=== PATIENT | male | born 1940 | race Caucasian/White ===

== ENCOUNTER → 2016-08-01 | Outpatient (CLI) | payer MEDICARE, BC, MEDICAID ==
[~2016-08-01] MED LIST: ACET-44 PO; ACET325T51 PO; ASPI81TA2 PO; CARB1TAB14 PO; CHOL200024 PO; DOCU100C19 PO; DULO30CA2 PO; FISH1CAP PO; GABA-336 PO; IPRA3AMP AEROSOL; LIDO700A3 TOP; MELO-267 PO; MELO-273 PO; MENT71OI TOP; MULT-1234 PO; OMEP20CA10 PO; POLY17PO6 PO; PRED2.5T PO; SIMV20TA6 PO; [UNRECOGNIZED DRUG - CODE] PO
== END ==
LOC: NWCC 08:29
PROVIDERS: ATTEND Internal Medicine
DX: B37.89 Other sites of candidiasis (principal); L98.412 Non-pressure chronic ulcer of buttock with fat layer exposed
CPT/HCPCS: 11042; A6209; G0463

== ENCOUNTER → 2016-08-15 | Outpatient (CLI) | payer MEDICARE, BC, MEDICAID ==
[~2016-08-15] MED LIST changes: -DOCU100C19 PO; -MELO-273 PO; -MENT71OI TOP; -[UNRECOGNIZED DRUG - CODE] PO
== END ==
LOC: NWCC 08:58
PROVIDERS: ATTEND Internal Medicine
DX: B37.89 Other sites of candidiasis (principal); L98.412 Non-pressure chronic ulcer of buttock with fat layer exposed; L53.9 Erythematous condition, unspecified
CPT/HCPCS: 11042; 11045; A6209; G0463

== ENCOUNTER → 2016-08-21 | Outpatient (CLI) | payer MEDICARE, BC, MEDICAID ==
[~2016-08-21] VITALS: Ht 172.7 cm; Wt 104.5 kg
[~2016-08-21] MED LIST changes: +REGADENOSON 0.4mg/5ml INJECTION IV ONE; +SALINE FLUSH 10ml SYRINGE ONE
--- NOTE | 2016-08-23 10:34 | ESTF ---
PHARMACOLOGICAL STRESS NUCLEAR SCAN DATE 08/21/2016 INDICATION 125.1 LBBB PROCEDURE The patient was unable to exercise on the treadmill due to Parkinson's disease and unsteady gait. He was injected with technetium-99m Myoview dose of 12.5 mCi. Lexiscan dose of 0.4 mg was administered followed by technetium-99m Myoview dose of 29.2 mCi. Stress and rest perfusion images were obtained per protocol. No side effects were reported. Rest EKG showed sinus rhythm, LBBB. During pharmacological stress, there was no arrhythmia. EKG portion is nondiagnostic. Blood pressure was 137/61. Heart rate of 68 beats per minute. Heart rate bharathi to 81 beats per minute, 55%. Blood pressure 140/65. Stress and rest perfusion images were obtained and reviewed. A fixed perfusion defect is seen in the septal wall, most likely due to LBBB. In addition, appears to be reduced uptake of mild to moderate degree especially the inferolateral wall which appears to redistribute suggestive of mild reversible ischemia, partially reversible in that distribution. Anterior wall exhibits normal uptake on both sets of images. Inferior wall exhibits moderately reduced uptake on both sets of images without redistribution. This is suggestive of diaphragmatic attenuation artifact. Gated images showed normal wall motion, normal contractility throughout, normal LV function. Ejection fraction measured 61% on stress images, 60% on rest images. No abnormal extracardiac uptake was identified. IMPRESSION: Pharmacological stress nuclear scan clinically negative, electrically nondiagnostic due to LBBB, scintigraphically suggestive of mild reversible ischemia in the lateral/inferolateral wall, partially reversible. Fixed perfusion defect identified in the anteroseptal wall is most likely due to LBBB as an artifact. In addition, diaphragmatic attenuation artifact is present. LV function is normal as above. Will discuss results with the patient regarding further management. SUNDEEP
== END ==
LOC: IMA 08:04
PROVIDERS: ATTEND Internal Medicine Cardiovascular Disease
DX: I25.10 Atherosclerotic heart disease of native coronary artery without angina pectoris (principal); R94.39 Abnormal result of other cardiovascular function study; I44.7 Left bundle-branch block, unspecified
CPT/HCPCS: 78452; 93017; A9502; J2785

== ENCOUNTER → 2016-08-29 | Outpatient (CLI) | payer MEDICARE, BC, MEDICAID ==
[~2016-08-29] MED LIST changes: +CALMOSEPTINE OINTMENT 3.5 G PACKET TOP ONE; -REGADENOSON 0.4mg/5ml INJECTION IV ONE; -SALINE FLUSH 10ml SYRINGE ONE
== END ==
LOC: NWCC 09:26
PROVIDERS: ATTEND Internal Medicine
DX: B37.89 Other sites of candidiasis (principal); L98.412 Non-pressure chronic ulcer of buttock with fat layer exposed; R32 Unspecified urinary incontinence; L53.9 Erythematous condition, unspecified
CPT/HCPCS: 11042; A6209; A9270; G0463

== ENCOUNTER → 2016-09-05 | Outpatient (CLI) | payer MEDICARE, BC, MEDICAID ==
[~2016-09-05] MED LIST changes: +ATEN25TA PO; -CALMOSEPTINE OINTMENT 3.5 G PACKET TOP ONE; +MAGN400O4
== END ==
LOC: NWCC 09:08
PROVIDERS: ATTEND Internal Medicine
DX: B37.89 Other sites of candidiasis (principal); L98.412 Non-pressure chronic ulcer of buttock with fat layer exposed; L53.9 Erythematous condition, unspecified
CPT/HCPCS: 11042; A6209; A6210; G0463

== ENCOUNTER → 2016-09-17 | Outpatient (CLI) | payer MEDICARE, BC, MEDICAID ==
[~2016-09-17] MED LIST changes: +CALMOSEPTINE OINTMENT 3.5 G PACKET TOP ONE
== END ==
LOC: NWCC 09:29
PROVIDERS: ATTEND Internal Medicine
DX: B37.89 Other sites of candidiasis (principal); L98.412 Non-pressure chronic ulcer of buttock with fat layer exposed
CPT/HCPCS: 11042; A6209; A6212; A9270; G0463

== ENCOUNTER 2016-09-19 06:47 | Outpatient (CLI) | payer MEDICARE, BC, MEDICAID ==
[~2016-09-19] VITALS: Ht 175.3 cm; Wt 99.4 kg
[2016-09-19] VITALS (19 sets, daily range): BP systolic 109–155; BP diastolic 56–82; PULSE 60–90; RESP 0–26; TEMP 97.6–98.5; O2SAT 93–97; Ht 175.3 cm; Wt 99.4 kg
[~2016-09-19 06:47] MED LIST changes: -ATEN25TA PO; -CALMOSEPTINE OINTMENT 3.5 G PACKET TOP ONE; -MAGN400O4
--- NOTE | 2016-09-19 07:02 | NUR ---
Admit Pt admitted to room 124 at this time via . Pt transferred to bed from x1 assist.
[2016-09-19 07:51] LABS: HCT - HEMATOCRIT 48.6 % (41-53); MEAN CORPUSCULAR HGB CONC(MCHC 30.9 GM/DL (31-37); MEAN PLATELET VOLUME 9.2 UM3 (9.4-12.4); WBC - WHITE BLOOD COUNT 10.9 T/MM3 (4.5-11.0)
[2016-09-19 07:58] LABS: ALBUMIN/GLOBULIN RATIO 1.1 RATIO (1.1-2.2); ALKALINE PHOSPHATASE 104 U/L (38-126); ALT (SGPT) 25 U/L (21-72); ANION GAP 13 MEQ/L (5-15); AST (SGOT) 27 U/L (17-59); BUN/CREATININE RATIO 20 RATIO (6-26); CALCIUM 9.4 MG/DL (8.4-10.2); CHLORIDE 105 MEQ/L (98-107); CO2 - CARBON DIOXIDE 28 MEQ/L (22-30); CREATININE 0.9 MG/DL (0.8-1.5); GLOMERULAR FILTRATION RATE 82; GLUCOSE 98 MG/DL (75-110); POTASSIUM 4.1 MEQ/L (3.6-5); SODIUM 146 MEQ/L (134-144); TOTAL PROTEIN 7.8 G/DL (6.3-8.2)
[2016-09-19 08:19] LABS: BASOPHILS # (MANUAL) 0.1 T/MM3 (0-0.2); EOSINOPHILS # (MANUAL) 0.9 T/MM3 (0-0.5); LYMPHOCYTES # (MANUAL) 2.8 T/MM3 (1-4.8); MONOCYTES # (MANUAL) 0.8 T/MM3 (0-0.8); NEUTROPHILS #(MANUAL)-ABSOLUTE 6.3 T/MM3 (1.8-7.7); TOTAL CELLS COUNTED 100 %
--- NOTE | 2016-09-19 08:23 | NUR ---
Elevated Plt Ct Dr. Tilley paged at 0813 to notify of critical value: Plt Ct 788. No response at this time.
[2016-09-19] MEDS: NORMAL SALINE 1,000 ML IV SCH ×2 (08:30→11:31)
[2016-09-19] MEDS ORDERED: FENTANYL 100mcg/2ml INJECTION ONE (08:45)
[2016-09-19] MEDS ORDERED: MIDAZOLAM 2mg/2ml INJECTION ONE (08:46)
[2016-09-19] MEDS ORDERED: NITROGLYCERIN 50mg/10ml INJECTION IV ONE (08:46)
[2016-09-19] MEDS ORDERED: VERAPAMIL 5mg/2ml INJECTION IV ONE (08:46)
[2016-09-19] MEDS ORDERED: LIDOCAINE 1% (10mg/ml) 30ml SDV ONE (08:47)
[2016-09-19] MEDS ORDERED: HEPARIN 1,000units in NS 500ml BAG IV ONE (08:47)
--- NOTE | 2016-09-19 09:10 | NUR ---
Off Unit Pt off unit to CV Lab at this time via cart
[2016-09-19] MEDS ORDERED: IOHEXOL 350mg/ml 200ml BOTTLE ONE ×2 (09:31→10:25)
[2016-09-19] MEDS ORDERED: MAGN400O4 (11:01)
--- NOTE | 2016-09-19 11:15 | NUR ---
Return Pt returned to floor at this time. transferred from cart to bed via slide board x3 assist.
[2016-09-19] MEDS ORDERED: HYDROCODONE/APAP 5 mg/325 mg TABLET PO PRN (12:00)
[2016-09-19] MEDS ORDERED: PROMETHAZINE 25 MG INJECTION IV PRN (12:00)
[2016-09-19] MEDS ORDERED: MAG-AL + SIM LIQUID 30 ML UDC PO PRN (12:00)
[2016-09-19] MEDS ORDERED: ACETAMINOPHEN 325 MG TABLET PO PRN (12:00)
[2016-09-19] MEDS ORDERED: METOCLOPRAMIDE 10mg/2ml INJECTION IV PRN (12:00)
[2016-09-19] MEDS ORDERED: ATROPINE 1 MG/ML VIAL IV PRN (12:00)
[2016-09-19] MEDS ORDERED: MORPHINE SULFATE 4 MG SYRINGE IV PRN ×2 (12:00)
[2016-09-19] MEDS ORDERED: NITROGLYCERIN 0.4 MG SUBLINGUAL TABLET SL PRN (12:00)
[2016-09-19] MEDS ORDERED: BISACODYL 10 MG SUPPOSITORY RECTALLY PRN (12:00)
[2016-09-19] MEDS ORDERED: LORAZEPAM 0.5 MG TABLET PO PRN (12:00)
[2016-09-19] MEDS ORDERED: BISACODYL 5 MG E.C. TABLET PO PRN (12:00)
[2016-09-19] MEDS ORDERED: MILK OF MAGNESIA 30 ML SUSP PO PRN (12:00)
[2016-09-19] MEDS ORDERED: LORAZEPAM 2 MG/ML INJECTION IV PRN (12:00)
[2016-09-19] MEDS ORDERED: ONDANSETRON 4mg/2ml INJECTION IV PRN (12:00)
--- NOTE | 2016-09-19 13:13 | NUR ---
EUN CM IN TO VISIT WITH PT. HE CONFIRMS THAT HE RESIDES AT [facility]. HE PLANS TO RETURN THERE UPON DC. VM IS LEFT FOR PELON TO LET HER KNOW THAT PT WILL BE STAYING THE NIGHT BUT WILL NEED TRANSPORT ON SATURDAY. Addendum: 09/19/16 at 1314 by EMANUEL NORMAN RN Amended: Links added.
[2016-09-19] MEDS: ATENOLOL 25 MG TABLET PO SCH (15:14)
--- NOTE | 2016-09-19 17:00 | NUR ---
TR Band Removal TR band to right wrist removed at this time. No bleeding/hematoma noted to site. 2x2/Tegaderm pressure dressing applied to puncture site. No drainage noted. Splint place back on arm. Pt instructed to extremity guidelines and verbalized understanding.
--- NOTE | 2016-09-19 22:02 | CVPROF ---
DATE OF PROCEDURE 09/19/2016 PROCEDURE PERFORMED 1. Transradial and transfemoral left heart catheterization. 2. LV gram. 3. Coronary angiogram. INDICATIONS Elderly gentleman with advanced Parkinson's disease. He has been wheelchair-bound for some time. They are deciding on having total hip replacement. He had an abnormal EKG. He underwent stress nuclear scan that was abnormal. He has significant risk factors for coronary artery disease. He was counseled on the indication, alternatives, risks and benefits of heart catheterization and they agreed to proceed. PREMEDICATION IV Versed and IV fentanyl. Please refer to nursing notes. NARRATIVE OF PROCEDURE The patient was brought to the cardiac cath laboratory and received IV sedation. I went ahead and injected lidocaine 1% in the right wrist, accessed the right radial artery without difficulty using modified Seldinger percutaneous technique. A 6-Albanian arterial sheath was introduced and placed. The side arm was flushed. I used multiple catheters. It was hard to reach the coronary arteries and a little hard to cross the aortic valve as well due to extreme tortuosity in the subclavian artery. I was able to cross the aortic valve with a catheter and performed hand injection, measured pressures. Then we decided to pay attention to the groin so it was prepped and draped in the usual sterile fashion. I went ahead and injected lidocaine 1%, about 10 mL, accessed the right common femoral artery without difficulty using modified Seldinger percutaneous technique. A 6-Fr arterial sheath was introduced, placed and side arm flushed. The patient did receive intraarterial drug combo at the beginning of the procedure shortly after obtaining radial artery access. At this point I used JR4 catheter, JL4 catheter and then went back with the Tom catheter due to catheter-induced spasm in the right coronary artery. Adequate diagnostic coronary angiograms were performed. The procedure was well tolerated. There were no immediate complications. Femoral arteriogram was followed by successful deployment of Mynx for closure. TR band was deployed for hemostasis over the radial artery. The patient remained free from angina, hemodynamically and electrically stable. He did receive vigorous IV fluid administration to help flush the dye out of his system, this being a difficult case requiring more contrast administration. FINDINGS CORONARY ANGIOGRAM: Left main coronary artery is large and normal. Left circumflex artery is a large codominant vessel. The obtuse marginal branch is large and exhibits a long area of severe occlusion, 80%-90%, throughout the proximal segment and extends to the ostium. The PLV branch and LPDA are free from occlusive disease. The diseased obtuse marginal branch is large in caliber. The LAD is a large vessel and exhibits severe occlusion, at least 90%, followed by aneurysmal dilatation. This is in the proximal LAD. The diagonal branch exhibits 70%-80% stenosis. I measured about 1.5 mm in caliber. Right coronary angiogram exhibits catheter-induced spasm. Additional images going back with the Tom catheter show a proximal moderate stenosis of about 60%-70%. Distal RCA is moderate 60%-70%. RPDA is free from occlusive disease. RPLB branch is quite small and exhibits severe diffuse stenosis throughout, subtotal occlusion. I don't see a segment of this vessel that would serve as a healthy segment to tie up a bypass graft. Limited LV gram shows normal left ventricular systolic function. Femoral arteriogram shows normal anatomy. IMPRESSION 1. Severe three-vessel coronary artery disease as manifested by a 90% proximal LAD occlusion followed by poststenotic small aneurysm, 80% first diagonal branch stenosis, 80%-90% occlusion of large obtuse marginal branch of the left circumflex artery, 60%-70% stenosis in two areas of the RCA, also a very severe diffuse stenosis throughout the RPLB branch. 2. Preserved LV systolic function. 3. Codominant RCA and LCX. 4. Normal hemodynamics. No subvalvular or transvalvular pressure gradient. In summary, the patient has severe three-vessel coronary artery disease with normal LV function. Anatomy is suitable for CABG. Unfortunately, patient's overall medical condition is poor with advanced Parkinson's disease and poor mobility and he would not be a good surgical candidate for CABG. I discussed that with the patient and family and I offered them a surgical consultation - they declined at this time. We will look into interventional options versus medical therapy. I am going to have the patient see Dr. Tr Martinez for an opinion on complex PCI versus medical therapy. Obviously, at this point the patient cannot be cleared for hip surgery. [facility]
[2016-09-20] MEDS: NORMAL SALINE 1,000 ML IV SCH (03:02)
[2016-09-20 05:07] LABS: HCT - HEMATOCRIT 44.2 % (41-53); HGB - HEMOGLOBIN 13.9 GM/DL (13.5-17.5); MEAN CORPUSCULAR HGB 25.4 UUG (26-34); MEAN CORPUSCULAR HGB CONC(MCHC 31.4 GM/DL (31-37); MEAN CORPUSCULAR VOLUME 80.8 UM3 (80-100); MEAN PLATELET VOLUME 9.5 UM3 (9.4-12.4); RED BLOOD COUNT 5.47 M/MM3 (4.50-5.90); WBC - WHITE BLOOD COUNT 12.6 T/MM3 (4.5-11.0)
[2016-09-20 05:30] LABS: ANION GAP 10 MEQ/L (5-15); BUN/CREATININE RATIO 19 RATIO (6-26); CALCIUM 9.4 MG/DL (8.4-10.2); CHLORIDE 108 MEQ/L (98-107); CO2 - CARBON DIOXIDE 26 MEQ/L (22-30); CREATININE 0.8 MG/DL (0.8-1.5); GLOMERULAR FILTRATION RATE 94; GLUCOSE 102 MG/DL (75-110); SODIUM 144 MEQ/L (134-144)
[2016-09-20 05:51] LABS: BAND NEUTROPHILS # 0.4 T/MM3; EOSINOPHILS # (MANUAL) 0.3 T/MM3 (0-0.5); LYMPHOCYTES # (MANUAL) 3.7 T/MM3 (1-4.8); NEUTROPHILS #(MANUAL)-ABSOLUTE 7.3 T/MM3 (1.8-7.7); TOTAL CELLS COUNTED 100 %
[2016-09-20 07:59] VITALS: BP 146/70; PULSE 53; RESP 13; TEMP 98.1; O2SAT 96
[2016-09-20 08:00] VITALS: PULSE 53
[2016-09-20] MEDS: ATENOLOL 25 MG TABLET PO SCH (09:00)
[2016-09-20] MEDS ORDERED: LEVODOPA PO SCH (09:15)
[2016-09-20] MEDS ORDERED: ENTACAPONE PO SCH (09:15)
[2016-09-20] MEDS ORDERED: CARBIDOPA PO SCH (09:15)
[2016-09-20] MEDS: ENTACAPONE 200 MG TABLET PO SCH ×2 (11:45→15:28)
[2016-09-20] MEDS: CARBIDOPA/LEVODOPA 25 MG/100 MG TABLET PO SCH ×2 (11:45→15:29)
[2016-09-20 12:34] VITALS: BP 121/57; PULSE 51; RESP 18; TEMP 98.5; O2SAT 95
--- NOTE | 2016-09-20 12:55 | NUR ---
CM CM TO VISIT PATIENT, HE WILL DISCHARGE BACK TO [facility]. NO DISCHARGE NEEDS. CM CONTACT INFORMATION PROVIDED.
--- NOTE | 2016-09-20 13:11 | NUR ---
CM LEFT MESSAGE FOR BOTH NATASHA AND CHRIS AT [facility] TO UPDATE ON DISCHARGE.
--- NOTE | 2016-09-20 13:41 | NUR ---
EUN SPOKE WITH ENA FROM [facility] [phone], TRANSPORTATION SAID THAT IF THEY CAN [facility] BY 5:30 PM THAT WOULD BE BEST. WHEN DISCHARGE TIME CALL ENA UNTIL 4:00, AFTER CALL RAVEN (MEDICAL NUMERICAL CONTROL OPERATOR) WHO IS AWARE OF PENDING DISCHARGE.
[2016-09-20] MEDS ORDERED: ATEN25TA PO (14:54)
--- NOTE | 2016-09-20 15:32 | NUR ---
DISMISSAL PREP CALLED [facility] TO GIVE REPORT PRIOR TO PT LEAVING [facility]. RECEIVING NURSE WILL CALL BACK.
--- NOTE | 2016-09-20 15:50 | NUR ---
DISMISSAL [facility] ARCHIT[facility] HERE TO TRANSPORT PT. PT'S PERSONAL BELONGINGS GATHERED. SCRIPT PREVIOUSLY TRANSMITTED TO PHARMACY PREFERRED BY [facility]. NO HOME MEDS TO RETURN. PT TAKEN OUT OF S.U. PER PERSONAL W/C BY [facility] STAFF TO FRONT ENTRANCE FOR TRANSPORT TO [facility].
--- NOTE | 2016-09-20 15:53 | NUR ---
REPORT ADELSO, RECEIVING NURSE AT [facility] RETURNED CALL FOR REPORT.
--- NOTE | 2016-09-20 17:05 | PNPDOC ---
Subjective Date DATE: 09/20/16 TIME: 16:59 Subjective NO C/O DENIES CP OR DYSPNEA. ANXIOUS TO GO HOME . Objective Vital Signs Vital signs Vital Signs 09/20/16 09/20/16 09/20/16 07:59 08:00 12:34 Temp 98.1 98.5 Pulse 53 53 51 Resp 13 18 B/P 146/70 121/57 Pulse Ox 96 95 O2 Delivery Room Air Room Air Telemetry Rhythm: Sinus Rhythm Height (Feet): 5 Height (Inches): 9.00 Weight (Kilograms): 99.400 General Alert, Orientated x 3, No Acute Distress Eyes (Brief) EOMI, PERRL, NOT FOUND: trauma ENMT (Brief) mucosa moist Neck (Brief) NOT FOUND: JVD Respiratory (Brief) clear all horne, equal bilaterally Cardiovascular (Brief) murmur, regular rate, regular rhythm, NOT FOUND: pedal edema Capillary Refill: <2 sec Abdomen (Brief) BS normo active x4, soft, NOT FOUND: distended, tender (Brief) NOT FOUND: deformity Extremities (Brief) Extremity : Extremity Finding: other (R wrsit and R groin both dry. NL peripheal pulses) , warm, NOT FOUND: clubbing, cyanosis, deformity, discoloration, edema, pain Lymphatic (Brief) NOT FOUND: adenopathy Musculoskeletal (Brief) NOT FOUND: deformity Integumentary (Brief) dry, pink, warm Neurologic (Brief) FOUND: cranial 2-12 intact, motor, sensory, NOT FOUND: facial droop, ptosis Psychiatric (Brief) alert, normal affect Laboratory Laboratory Laboratory Tests 09/20/16 04:11 Laboratory Tests 09/20/16 04:11 Assessment & Plan Plan/Intensity of Service chronic 3 V CAD poor surgical candidate due to comorbidite sand poor functional capacity associated w Parkinson's. pt and family offered and declined surgical opinion. seeing Dr Juan lara 1 wk to review PCI options. medical Rx for now. asymptomatic . pt and family undersatand risk of SCD with severe 3 V CAD. fortunatley, his LVFx is good. BB added. afebrile . f/u w PCP. as well. RTC w me 2 wks. CHANTE COREAS MD Sep 20, 2016 17:05
== END 2016-09-20 15:50 ==
LOC: SRG 06:47 → CATH 06:47
PROVIDERS: ATTEND Internal Medicine Cardiovascular Disease
DX: I25.10 Atherosclerotic heart disease of native coronary artery without angina pectoris (principal); I25.41 Coronary artery aneurysm; I44.7 Left bundle-branch block, unspecified; G20 Parkinson's disease; Z99.3 Dependence on wheelchair; R94.31 Abnormal electrocardiogram [ECG] [EKG]; R94.39 Abnormal result of other cardiovascular function study
CPT/HCPCS: 36415; 80048; 80053; 85025; 93005; 93458; A9270; C1760; C1769; C1887; C1893; J1644; J2250; J3010; J3490; J7030; Q9967

== ENCOUNTER → 2016-10-01 | Outpatient (CLI) | payer MEDICARE, BC, MEDICAID ==
[~2016-10-01] MED LIST changes: -ACET325T51 PO; +ATEN25TA PO; +MAGN400O4; -POLY17PO6 PO
== END ==
LOC: NWCC 09:45
PROVIDERS: ATTEND Internal Medicine
DX: B37.89 Other sites of candidiasis (principal); L98.412 Non-pressure chronic ulcer of buttock with fat layer exposed; L53.9 Erythematous condition, unspecified
CPT/HCPCS: 11042; 97597; A6209; G0463